=== PATIENT | male | born 1980 | race Two or more races ===

== ENCOUNTER 2017-01-12 11:54 | Emergency (ER) | payer SELFPAY ==
[~2017-01-12] VITALS: Ht 185.4 cm; Wt 95.3 kg
[2017-01-12 11:56] VITALS: BP 137/73
[2017-01-12] MEDS ORDERED: CRESTOR10 M1 ORAL (12:04)
[2017-01-12 12:08] VITALS: BP 137/73
--- NOTE | 2017-01-12 12:36 | Emergency Room Report ---
History of Present Illness General Chief Complaint: Medication Refill Source: Patient, Medical Record Present Illness HPI The patient was not seen by me. He has left without being seen approximately 10 minutes after registering. Allergies: Coded Allergies: No Known Allergies (Unverified , 01/12/17) Nursing Documentation-[facility] Past Medical History: No History, Except For Physical Exam Vital Signs Date Time Temp Pulse Resp B/P Pulse Ox O2 Delivery O2 Flow Rate FiO2 01/12/17 11:56 98.1 78 18 137/73 98 Room Air Medical Decision Making PA Attestation Dr. Guevara is my supervising physician. Patient management was discussed with my supervising physician ER Course The patient was not seen by me. He has left without being seen approximately 10 minutes after registering. Last Vital Signs Date Time Temp Pulse Resp B/P Pulse Ox O2 Delivery O2 Flow Rate FiO2 01/12/17 12:08 98.1 18 137/73 98 Room Air 01/12/17 11:56 78 Disposition: LEFT W/OUT BEING SEEN Condition: Unknown Referrals: NON PHYSICIAN (PCP) BIMAL العراقي Jan 12, 2017 12:36
== END 2017-01-12 12:30 | disposition left against medical advice (07) ==
LOC: EMR 12:25
DX: Z53.21 Procedure and treatment not carried out due to patient leaving prior to being seen by health care provider (principal)
CPT/HCPCS: 99281